=== PATIENT | male | born 1960 | race Caucasian/White ===

== ENCOUNTER → 2017-03-07 | Outpatient (CLI) | payer OTHER ==
--- NOTE | 2017-03-07 15:48 | US ---
EXAMINATION TYPE: Ultrasound MSK right shoulder DATE OF EXAM: 03/07/2017 COMPARISON: NONE CLINICAL HISTORY: 56-year-old male M75.21 BICIPITAL TENDINITIS RT SHOULDER. Right shoulder pain for m onths, limited range of motion. Technique: Multiple sonographic images of the right shoulder are obtained. FINDINGS: The long head biceps tendon appears intact and appropriately situated along the bicipital groove. There is mild tenosynovial fluid along the extracapsular portion. Subscapularis tendon is intact. AC joint appears intact. Preserved muscle bulk of the supraspinatus and infraspinatus muscles. Both supraspinatus and infraspinatus tendons are intact without any high-grade partial or full-thickn ess tear. There is mild bursal thickening/fluid in the subacromial/subdeltoid bursa. There is no effusion on the posterior recess of the glenohumeral joint. Posterior labrum appears rela tively normal for patient's age. The spinoglenoid groove is clear. IMPRESSION: 1. Small amount of fluid along the bicipital groove could represent mild long head biceps tenosynovit is. No discrete tendon tear identified. 2. No evidence for rotator cuff tear or muscle atrophy. 3. Some fluid/thickening in the subacromial/subdeltoid bursa. This could represent a mild bursitis. G iven the patient's limited range of motion, correlate to exclude adhesive capsulitis.
== END | disposition home or self-care (01) ==
LOC: RADUSWWP 13:26
PROVIDERS: ATTEND Family Medicine
DX: M75.21 Bicipital tendinitis, right shoulder (principal)

== ENCOUNTER 2019-02-16 12:52 | Day surgery (SDC) | payer BC ==
[~2019-02-16 12:52] MED LIST: LACTATED RINGERS 1,000 ML IV SCH; LIDOCAINE 1% 20 ML VIAL (10MG/ML) FOR IV START INTRADERMA PRN
[2019-02-16 13:17] VITALS: BMI 21.7
[2019-02-16 13:26] VITALS: RESP 16; TEMP 97.3
[2019-02-16] MEDS ORDERED: fentaNYL (PF) 50 MCG/ML 2 ML AMP ONE (13:45)
[2019-02-16] MEDS ORDERED: PROPOFOL 10 MG/ML 20 ML VIAL IV ONE (13:45)
[2019-02-16] MEDS ORDERED: MIDAZOLAM 2 MG/2 ML VIAL ONE (13:45)
--- NOTE | 2019-02-16 14:48 | P.PCN ---
Date of Procedure: 02/16/19 Description of Procedure: BRIEF HISTORY: Patient is a 58-year-old female presenting for outpatient colonoscopy malignant neoplasm of the colon. The patient reports no change in bowel habits, blood per rectum, abdominal pain. Remote history of colonoscopy which she believes was normal. PROCEDURE PERFORMED: Colonoscopy with polypectomy. PREOPERATIVE DIAGNOSIS: Screening for malignant neoplasm of the colon. ESTIMATED BLOOD LOSS: Minimal. IV sedation per Anesthesia. PROCEDURE: After informed consent was obtained, the patient, was brought into the endoscopy unit. IV sedation was administered by Anesthesia under continuous monitoring. Digital rectal examination was normal. Initially the Olympus CF-190 flexible video colonoscope was then inserted in the rectum, gradually advanced into the cecum without any difficulty. Careful examination was performed as the scope was gradually being withdrawn. Ileocecal valve and the appendiceal orifice were visualized and appeared normal. Prep was excellent. Mucosa of the cecum, ascending colon, transverse colon, descending colon, sigmoid colon, and rectum appeared normal. 1 diminutive 2 mm ascending colon polyp removed with cold forcep polypectomy. 2 polyps removed from the transverse colon one measuring 4 mm with cold snare polypectomy and one measuring 2 mm with cold forcep polypectomy. One large pedunculated 12 mm splenic flexure polyp removed with hot snare polypectomy. 2 sessile descending colon polyps measuring 6 and 7 mm removed with cold snare polypectomy. 4 diminutive sigmoid colon polyps measuring 1-2 mm removed with cold forcep polypectomy.Retroflexion was performed in the rectum and no lesions were seen. The patient tolerated the procedure well. IMPRESSION: 10 colon polyps measuring from 1 to 12 millimeters removed from the colon (please see body report for full details on location and removal). RECOMMENDATIONS: Findings of this examination were discussed with isreal and his family. Okay to resume diet. Okay to resume medications. Await pathology from polypectomy. Repeat colonoscopy in 1 year for high risk colon polyps.
[2019-02-16 15:47] VITALS: BP 141/83; PULSE 79
== END 2019-02-16 16:00 | disposition home or self-care (01) ==
LOC: ORWHC2ENDO 12:52
PROVIDERS: ATTEND Internal Medicine
DX: Z12.11 Encounter for screening for malignant neoplasm of colon (principal); D12.4 Benign neoplasm of descending colon; D12.5 Benign neoplasm of sigmoid colon; D12.3 Benign neoplasm of transverse colon; K63.5 Polyp of colon; I10 Essential (primary) hypertension; K21.9 Gastro-esophageal reflux disease without esophagitis; Z79.899 Other long term (current) drug therapy
CPT/HCPCS: 88305; 45380; 45385; J2250; J3010; J2704

== ENCOUNTER 2020-05-23 07:03 | Day surgery (SDC) | payer BC ==
[2020-05-19 08:58] VITALS: BMI 23.2
[~2020-05-23 07:03] MED LIST changes: -LIDOCAINE 1% 20 ML VIAL (10MG/ML) FOR IV START INTRADERMA PRN
[2020-05-23 07:30] VITALS: TEMP 97.7
[2020-05-23] MEDS ORDERED: LIDOCAINE 1% (10MG/ML) FOR IV START INTRADERMA ONE (07:30)
[2020-05-23] MEDS ORDERED: MIDAZOLAM 2 MG/2 ML VIAL ONE (08:18)
[2020-05-23] MEDS ORDERED: fentaNYL (PF) 50 MCG/ML 2 ML AMP ONE (08:18)
[2020-05-23] MEDS ORDERED: PROPOFOL 10 MG/ML 20 ML VIAL IV ONE (08:18)
--- NOTE | 2020-05-23 08:48 | P.PCN ---
Date of Procedure: 05/23/20 Description of Procedure: BRIEF HISTORY: Patient is a 58-year-old male presenting for outpatient colonoscopy for evaluation history of colon polyps. Patient had colonoscopy in 01/2019 with 10 polyps removed at that time. He denies any change in bowel habits, blood per rectum or abdominal pain. PROCEDURE PERFORMED: Colonoscopy with polypectomy . PREOPERATIVE DIAGNOSIS: Personal history of colon polyps, last colonoscopy 01/2019 with 10 polyps removed at that time. ESTIMATED BLOOD LOSS: Minimal. IV sedation per Anesthesia. PROCEDURE: After informed consent was obtained, the patient, was brought into the endoscopy unit. IV sedation was administered by Anesthesia under continuous monitoring. Digital rectal examination was normal. Initially the Olympus CF-190 flexible video colonoscope was then inserted in the rectum, gradually advanced into the cecum without any difficulty. Careful examination was performed as the scope was gradually being withdrawn. Ileocecal valve and the appendiceal orifice were visualized and appeared normal. Prep was excellent. Mucosa of the cecum, a scending colon, transverse colon, descending colon, sigmoid colon, and rectum appeared normal. 2 diminutive transverse colon polyps measuring 1-2 mm in size removed with cold forcep polypectomy. Cold snare polypectomy of 4 ascending colon polyps measuring 2 mm to 4 mm in size and one sigmoid colon polyp measuring 3 mm in size. Retroflexion was performed in the rectum and no lesions were seen, Low-grade internal hemorrhoids. The patient tolerated the procedure well. IMPRESSION: 5 small polyps removed with cold snare polypectomy 4 from the descending colon and one from the sigmoid colon. 2 diminutive transverse colon polyps removed with cold forcep polypectomy. RECOMMENDATIONS: Findings of this examination were discussed with the patient. Okay to resume diet. Okay to resume medications. Await pathology from polypectomies. Recommend repeat colonoscopy in 3 years for history of colon polyps .
[2020-05-23 09:13] VITALS: BP 132/86; PULSE 87; RESP 18
== END 2020-05-23 09:52 | disposition home or self-care (01) ==
LOC: ORWHC2ENDO 07:03
PROVIDERS: ATTEND Internal Medicine
DX: Z09 Encounter for follow-up examination after completed treatment for conditions other than malignant neoplasm (principal); D12.3 Benign neoplasm of transverse colon; D12.4 Benign neoplasm of descending colon; D12.5 Benign neoplasm of sigmoid colon; Z86.010 Personal history of colon polyps; K64.8 Other hemorrhoids; I10 Essential (primary) hypertension; Z79.899 Other long term (current) drug therapy; Z98.890 Other specified postprocedural states
CPT/HCPCS: 88305; 45380; 45385; J2250; J3010; J2704

== ENCOUNTER 2024-07-30 09:45 | Emergency (ER) | payer BC, OTHER ==
--- NOTE | 2024-07-30 10:32 | ED ---
General Adult HPI - General Chief complaint: Recheck/Abnormal Lab/Rx Stated complaint: IHS-right side pain Time Seen by Provider: 07/30/24 10:05 Source: patient, RN notes reviewed Mode of arrival: ambulatory Limitations: no limitations - History of Present Illness Initial comments: 64-year-old male presents to the emergency department for evaluation of right sided chest wall pain. Patient states that he took a fall on Saturday following a syncopal episode. He went to [facility] to be evaluated. He had laboratory studies, EKG, chest x-ray performed which he states were unremarkable. He states that since then he has had pain in his chest wall. It is worse with breathing and movement. He denies any shortness of breath. Denies any bruising over the skin. He has been utilizing Robaxin, Tylenol, and lidocaine patches with minimal relief. - Related Data Home Medications Medication Instructions Recorded Confirmed Multivitamins, Thera [Multivitamin 1 tab PO DAILY 02/13/19 05/23/20 (formulary)] Ascorbic Acid [Vitamin C] 500 mg PO DAILY 02/16/19 05/23/20 Propranolol [Inderal] 80 mg PO DAILY 02/16/19 05/23/20 Losartan Potassium [Cozaar] 100 mg PO DAILY 05/19/20 05/23/20 flaxseed oiL [Flaxseed Oil] 1,000 mg PO DAILY 05/19/20 05/23/20 hydroCHLOROthiazide 12.5 mg PO DAILY 05/19/20 05/23/20 Previous Rx's Medication Instructions Recorded HYDROcodone/APAP 5-325MG [Jackson 1 tab PO Q6HR PRN 3 Days #12 tab 07/30/24 5-325] Allergies Allergy/AdvReac Type Severity Reaction Status Date / Time No Known Allergies Allergy Verified 07/30/24 09:49 Review of Systems ROS Statement: Those systems with pertinent positive or pertinent negative responses have been documented in the HPI. ROS Other: All systems not noted in ROS Statement are negative. Past Medical History Past Medical History: Diabetes Mellitus, Hypertension Additional Past Medical History / Comment(s): back pain, hx. colon polyps, hand tremors-not sure of cause, has had for years, "pre-diabetic", watches diet History of Any Multi-Drug Resistant Organisms: None Reported Past Surgical History: No Surgical Hx Reported Additional Past Surgical History / Comment(s): colonoscopy, pain procedure Past Anesthesia/Blood Transfusion Reactions: No Reported Reaction Past Psychological History: No Psychological Hx Reported Smoking Status: Never smoker General Exam Limitations: no limitations General appearance: alert, in no apparent distress Head exam: Present: atraumatic, normocephalic, normal inspection Eye exam: Present: normal appearance, PERRL, EOMI. Absent: scleral icterus, conjunctival injection, periorbital swelling Respiratory exam: Present: normal lung sounds bilaterally, chest wall tenderness (Right anteriolateral chest wall tenderness to palpation). Absent: respiratory distress, wheezes, rales, rhonchi, stridor Cardiovascular Exam: Present: regular rate, normal rhythm, normal heart sounds. Absent: systolic murmur, diastolic murmur, rubs, gallop, clicks GI/Abdominal exam: Present: soft, normal bowel sounds. Absent: distended, tenderness, guarding, rebound, rigid Extremities exam: Present: normal inspection, full ROM, normal capillary refill. Absent: tenderness, pedal edema, joint swelling, calf tenderness Back exam: Present: normal inspection Neurological exam: Present: alert, oriented X3 Psychiatric exam: Present: normal affect, normal mood Skin exam: Present: warm, dry, intact, normal color. Absent: rash Course Vital Signs 07/30/24 07/30/24 09:45 10:12 Temperature 97.6 F Pulse Rate 92 Respiratory 18 22 Rate Blood Pressure 148/95 O2 Sat by Pulse 96 Oximetry Medical Decision Making - Medical Decision Making Was pt. sent in by a medical professional or institution (, PA, PRODUCTION SUPPORT ENGINEER, urgent care, hospital, or jail...) When possible be specific @ -No Did you speak to anyone other than the patient for history (EMS, parent, family, police, friend...)? What history was obtained from this source @ -No Did you review nursing and triage notes (agree or disagree)? Why? @ -I reviewed and agree with nursing and triage notes Were old charts reviewed (outside hosp., previous admission, EMS record, old EKG, old radiological studies, urgent care reports/EKG's, jail records)? Report findings @ -No old charts were reviewed Differential Diagnosis (chest pain, altered mental status, abdominal pain women, abdominal pain men, vaginal bleeding, weakness, fever, dyspnea, syncope, headache, dizziness, GI bleed, back pain, seizure, CVA, palpatations, mental health, musculoskeletal)? @ -Differential Musculoskeletal Muscular strain, contusion, ligament sprain, fracture, arthritis, septic arthritis, bursitis, cellulitis, muscle spasm, nerve compression, DVT, arterial occlusion, herpes zoster, electrolyte abnormality, tumor.... This is not meant to be in all inclusive list EKG interpreted by me (3pts min.). @ -None X-rays interpreted by me (1pt min.). @ -X-rays of the right sided ribs and PA chest reveal potential projectional artifact versus nondisplaced fracture of the right anterior lateral seventh rib CT interpreted by me (1pt min.). @ -None done U/S interpreted by me (1pt. min.). @ -None done What testing was considered but not performed or refused? (CT, X-rays, U/S, labs)? Why? @ -None What meds were considered but not given or refused? Why? @ -None Did you discuss the management of the patient with other professionals (professionals i.e. , PA, PRODUCTION SUPPORT ENGINEER, lab, RT, psych nurse, social work msw, flattening machine operator, teacher, toxics program officer, case repairer)? Give summary @ -No Was smoking cessation discussed for >3mins.? @ -No Was critical care preformed (if so, how long)? @ -No Were there social determinants of health that impacted care today? How? (H omelessness, low income, unemployed, alcoholism, drug addiction, transportation, low edu. Level, literacy, decrease access to med. care, fpc, rehab)? @ -No Was there de-escalation of care discussed even if they declined (Discuss DNR or withdrawal of care, Hospice)? DNR status @ -No What co-morbidities impacted this encounter? (DM, HTN, Smoking, COPD, CAD, Cancer, CVA, ARF, Chemo, Hep., AIDS, mental health diagnosis, sleep apnea, morbid obesity)? @ -None Was patient admitted / discharged? Hospital course, mention meds given and route, prescriptions, significant lab abnormalities, going to OR and other pertinent info. @ -Discharged. Patient presented to the emergency department for right anterior lateral chest wall pain. Patient took a fall on Saturday following a syncopal episode. He had been evaluated at an outside facility for this. Had laboratory studies obtained including CBC, CMP, troponin which he states was unremarkable. He also had a chest x-ray at that time and states that they did not see any rib fractures. He notes that his pain is continued to worsen prompting his presentation to our emergency department today. X-rays of the right sided ribs and PA chest were obtained which reveal potential projectional artifact versus nondisplaced fracture of the right anterior lateral seventh rib. Based on the patient's clinical presentation I do believe that this is likely a fracture. Patient was provided Toradol and Jackson in the emergency department for pain control which he states improved his pain. He was provided an incentive spirometer and instructed on its use. He will be discharged home with a prescription for Jackson x 3 days. I advised him to follow-up with his primary care provider for release back to work. He is understanding agreeable with discharge plan. Patient stable at time of discharge. Case discussed with Dr. Smith. Undiagnosed new problem with uncertain prognosis? @ -No Drug Therapy requiring intensive monitoring for toxicity (Heparin, Nitro, Insulin, Cardizem)? @ -No Were any procedures done? @ -No Diagnosis/symptom? @ -Rib fracture Acute, or Chronic, or Acute on Chronic? @ -Acute Uncomplicated (without systemic symptoms) or Complicated (systemic symptoms)? @ -Uncomplicated Side effects of treatment? @ -No Exacerbation, Progression, or Severe Exacerbation? @ -No Poses a threat to life or bodily function? How? (Chest pain, USA, NV, pneumonia, PE, COPD, DKA, ARF, appy, cholecystitis, CVA, Diverticulitis, Homicidal, Suicidal, threat to staff... and all critical care pts) @ -No Disposition Clinical Impression: Rib fracture, Rib contusion Disposition: HOME SELF-CARE Condition: Stable Instructions (If sedation given, give patient instructions): Rib Fracture (ED) Additional Instructions: Please follow-up with your primary care provider for release back to work. Utilize ibuprofen in addition to the Jackson for pain control. Also utilize the incentive spirometer. Return to the emergency department for new or worsening symptoms. Prescriptions: HYDROcodone/APAP 5-325MG [Jackson 5-325] 1 tab PO Q6HR PRN 3 Days #12 tab PRN Reason: Pain Is patient prescribed a controlled substance at d/c from ED?: Yes When asked, does pt state using other controlled substances?: No If prescribed controlled substance>3 days was MAPS reviewed?: Prescribed <3 Days Referrals: Holly Mitchell DO [Primary Care Provider] - 1-2 days
[2024-07-30] MEDS: KETOROLAC 15 MG/ML 1 ML VIAL IM STA (10:33)
[2024-07-30] MEDS: HYDROcodone/APAP 5-325MG 1 EACH TAB PO STA (10:34)
--- NOTE | 2024-07-30 11:17 | XR ---
EXAMINATION TYPE: XR ribs RT w pa chest xray, 5 views DATE OF EXAM: 07/30/2024 11:11 AM COMPARISON: None CLINICAL INDICATION: Male, 64 years old with history of pain; PHH, pain FINDINGS: Heart limits of normal in size. Interstitial prominence. Left base underpenetrated and not well asses sed. Some cortical irregularity along the right lateral sixth rib due to old injury. There is a lucen cy along the anterolateral right seventh rib on the oblique view, possible nondisplaced fracture. No appreciable pneumothorax. IMPRESSION: 1. Chest: Interstitial prominence may reflect underlying bronchitis or asthma. Left base underpenetra zuleyma and not well assessed. 2. Right ribs: Either projectional artifact versus a nondisplaced fracture of the right anterolateral seventh rib. Correlate for point tenderness. [facility], Workstation: [id number], 07/30/2024 11:15 AM
[2024-07-30 11:53] VITALS: BP 148/97; PULSE 72; RESP 20; TEMP 97.8
== END 2024-07-30 11:55 | disposition home or self-care (01) ==
LOC: EC 09:45
DX: S20.219A Contusion of unspecified front wall of thorax, initial encounter (principal); S22.31XA Fracture of one rib, right side, initial encounter for closed fracture; W19.XXXA Unspecified fall, initial encounter
CPT/HCPCS: 71101; 99284; 96372; J1885

== ENCOUNTER → 2024-08-27 | Outpatient (CLI) | payer BC ==
--- NOTE | 2024-08-27 15:24 | US ---
EXAMINATION TYPE: US carotid duplex BILAT DATE OF EXAM: 08/27/2024 COMPARISON: NONE CLINICAL INDICATION: Male, 64 years old with history of R55 SYNCOPE, R42 DIZZINESS; fall at work x 3 weeks ago, pt still feeling dizzy after couple days returning back to work, pt is feeling back to nor mal today Additional History: R42* Dizziness TECHNIQUE: Grayscale, color Doppler and spectral Doppler evaluation of the bilateral carotid systems and vertebral arteries. Indirect Doppler criteria was utilized. FINDINGS: EXAM MEASUREMENTS: RIGHT: Peak Systolic Velocity (PSV) cm/sec ----- Right CCA: 98.7 ----- Right ICA: 125 ----- Right ECA: 125 ICA/CCA ratio: 1.3 RIGHT: End Diastole cm/sec ----- Right CCA: 22.6 ----- Right ICA: 45.5 ----- Right ECA: 13.9 LEFT: Peak Systolic Velocity (PSV) cm/sec ----- Left CCA: 112 ----- Left ICA: 125 ----- Left ECA: 118 ICA/CCA ratio: 1.1 LEFT: End Diastole cm/sec ----- Left CCA: 26.0 ----- Left ICA: 45.5 ----- Left ECA: 13.0 VERTEBRALS (direction of flow): Right Vertebral: Antegrade Left Vertebral: Antegrade Rhythm: Normal MANAGER IT SECURITY NOTES: No elevated velocities, plaque or significant stenosis seen bilaterally Color Doppler imaging shows patency with blood flow throughout the carotid artery. Spectral waveforms are within normal limits. IMPRESSION: No evidence for hemodynamically significant stenosis Criteria for Assigning % of Stenosis / Diameter reduction (Estimation based on the indirect measurements of the internal carotid artery velocities (ICA PSV). 1. Normal (no stenosis)=ICA PSV < 180 cm/s: ratio < 2.0: ICA EDV<40 cm/s. 2. Less than 50% stenosis=ICA PSV < 180 cm/s: ratio < 2.0: ICA EDV<40 cm/s. 3. 50 to 69% stenosis=ICA PSV of 180 to 230 cm/s: ration 2.0 ? 4.0: ICA EDV 40-100 cm/s. PSV 125-180 cm/sec and ICA/CCA PSV Ratio ? 2.0 is also consistent with 50-69% stenosis 4. Greater than 70% stenosis to near occlusion= ICA PSV > 230 cm/s: ratio > 4.0: ICA EDV > 100 cm/s. 5. Near occlusion= ICA PSV velocities may be low or undetectable: variable ratio and ICA EDV. 6. Total occlusion=unable to detect flow. [facility], , 08/27/2024 3:22 PM
--- NOTE | 2024-08-28 15:48 | CA ---
Transthoracic Echo Report Name: Scotty Montenegro Age: 64 Gender: M : 1960 Exam Date: 08/27/2024 15:02 Exam Location: [place] Ht (in): 73 Wt (lb): 185 Ordering Physician: Holly Mitchell DO Attending/Referring Phys: Sonia Newell [facility] [employer] Advanced Operator Maintainer Martha Valladares RDCS Procedure CPT: Indications: R42 Cardiac Hx: Technical Quality: Fair Contrast 1: Total Dose (mL): Contrast 2: Total Dose (mL): MEASUREMENTS (Male / Female) Normal Values 2D ECHO LV Diastolic Diameter PLAX 5.5 cm 4.2 - 5.9 / 3.9 - 5.3 cm LV Systolic Diameter PLAX 4.0 cm IVS Diastolic Thickness 1.3 cm 0.6 - 1.0 / 0.6 - 0.9 cm LVPW Diastolic Thickness 1.2 cm 0.6 - 1.0 / 0.6 - 0.9 cm LV Relative Wall Thickness 0.4 RV Internal Dim ED PLAX 3.7 cm LA Systolic Diameter LX 3.7 cm 3.0 - 4.0 / 2.7 - 3.8 cm LV Diastolic Volume MOD 4C 106.1 cm??? LV Systolic Volume MOD 4C 52.0 cm??? LV Ejection Fraction MOD 4C 50.9 % LV Cardiac Index MOD 4C 1815.5 cm???/min???m??? LV Diastolic Length 4C 8.1 cm LV Systolic Length 4C 6.7 cm LV Diastolic Volume MOD 2C 103.6 cm??? LV Systolic Volume MOD 2C 45.0 cm??? LV Ejection Fraction MOD 2C 56.5 % LV Cardiac Index MOD 2C 1967.3 cm???/min???m??? LV Diastolic Length 2C 8.3 cm LV Systolic Length 2C 6.9 cm LA Volume 47.5 cm??? 18 - 58 / 22 - 52 cm??? LA Volume Index 22.8 cm???/m??? 16 - 28 cm???/m??? M-MODE Aortic Root Diameter MM 3.2 cm AV Cusp Separation MM 2.1 cm DOPPLER AV Peak Velocity 112.0 cm/s AV Peak Gradient 5.0 mmHg MV Area PHT 3.7 cm??? Mitral E Point Velocity 69.1 cm/s Mitral A Point Velocity 83.1 cm/s Mitral E to A Ratio 0.8 MV Deceleration Time 204.7 ms TR Peak Velocity 236.2 cm/s TR Peak Gradient 22.3 mmHg Right Ventricular Systolic Press 26.9 mmHg FINDINGS Left Ventricle Left ventricular ejection fraction is estimated at 50-55%. Left ventricular cavity size normal. Mildly increased septal wall thickness. No obvious regional wall motion abnormalities. Right Ventricle Mild right ventricular dilatation. Right ventricular systolic pressure within normal limits. Right Atrium Normal right atrial size. No right atrial thrombus or mass seen. Left Atrium Normal left atrial size. No left atrial thrombus or mass present. Mitral Valve Mitral valve thickened. No mitral stenosis, regurgitation or prolapse. Aortic Valve Trileaflet aortic valve. No aortic valve stenosis or regurgitation. Tricuspid Valve Structurally normal tricuspid valve. Trace to mild tricuspid regurgitation. Pulmonic Valve Structurally normal pulmonic valve. Trace pulmonic regurgitation. Pericardium No pericardial effusion. Aorta Normal size aortic root and proximal ascending aorta. CONCLUSIONS Left ventricular ejection fraction 50 to 55% Mildly increased left ventricular wall thickness Trace to mild tricuspid regurgitation No pericardial effusion Previewed by: Dr. Javon Callejas DO (Electronically Signed) Final Date: 28 Aug 2024 15:47
== END | disposition home or self-care (01) ==
LOC: RADUSWWP 14:05
PROVIDERS: ATTEND Family Medicine
DX: R42 Dizziness and giddiness (principal); R55 Syncope and collapse
CPT/HCPCS: 93306; 93880

== ENCOUNTER 2024-09-06 13:35 | Emergency (ER) | payer BC ==
[2024-09-06 13:39] VITALS: RESP 18; TEMP 98.1
--- NOTE | 2024-09-06 13:57 | ED ---
General Adult HPI - General Chief complaint: Arrhythmia/Palpitations Stated complaint: increased heart rate Time Seen by Provider: 09/06/24 13:42 Source: patient, RN notes reviewed Mode of arrival: ambulatory Limitations: no limitations - History of Present Illness Initial comments: Patient is a 64-year-old male present to the emergency department with concerns for palpitations. Onset of symptoms was yesterday. Heart rate at home was up to 140. Symptoms seem to improve and heart rate went under 100 at bedtime. Symptoms occurred again this morning with a heart rate of 120. Currently patient is symptom-free. Patient does have chronic tremor and states this is a little bit increased. Patient admits to feeling a little bit anxious as well. No chest pain. No dyspnea. - Related Data Home Medications Medication Instructions Recorded Confirmed Multivitamins, Thera [Multivitamin 1 tab PO DAILY 02/13/19 05/23/20 (formulary)] Ascorbic Acid [Vitamin C] 500 mg PO DAILY 02/16/19 05/23/20 Propranolol [Inderal] 80 mg PO DAILY 02/16/19 05/23/20 Losartan Potassium [Cozaar] 100 mg PO DAILY 05/19/20 05/23/20 flaxseed oiL [Flaxseed Oil] 1,000 mg PO DAILY 05/19/20 05/23/20 hydroCHLOROthiazide 12.5 mg PO DAILY 05/19/20 05/23/20 Previous Rx's Medication Instructions Recorded HYDROcodone/APAP 5-325MG [Supply 1 tab PO Q6HR PRN 3 Days #12 tab 07/30/24 5-325] Allergies Allergy/AdvReac Type Severity Reaction Status Date / Time No Known Allergies Allergy Verified 09/06/24 13:39 Review of Systems ROS Statement: Those systems with pertinent positive or pertinent negative responses have been documented in the HPI. ROS Other: All systems not noted in ROS Statement are negative. Constitutional: Denies: fever Eyes: Denies: eye pain ENT: Denies: ear pain Respiratory: Denies: cough, dyspnea Cardiovascular: Reports: as per HPI, palpitations. Denies: chest pain Endocrine: Denies: fatigue Gastrointestinal: Denies: abdominal pain Past Medical History Past Medical History: Diabetes Mellitus, Hypertension Additional Past Medical History / Comment(s): back pain, hx. colon polyps, hand tremors-not sure of cause, has had for years, "pre-diabetic", watches diet History of Any Multi-Drug Resistant Organisms: None Reported Past Surgical History: No Surgical Hx Reported Additional Past Surgical History / Comment(s): colonoscopy, pain procedure Past Anesthesia/Blood Transfusion Reactions: No Reported Reaction Past Psychological History: No Psychological Hx Reported Smoking Status: Never smoker General Exam Limitations: no limitations General appearance: alert, in no apparent distress Head exam: Present: normocephalic Eye exam: Present: normal appearance Neck exam: Present: normal inspection Respiratory exam: Present: normal lung sounds bilaterally Cardiovascular Exam: Present: normal rhythm, tachycardia GI/Abdominal exam: Present: soft. Absent: tenderness Extremities exam: Present: normal inspection. Absent: pedal edema, calf tenderness Neurological exam: Present: alert Psychiatric exam: Present: normal affect, normal mood Skin exam: Present: normal color Course Vital Signs 09/06/24 09/06/24 13:36 15:43 Temperature 98.1 F Pulse Rate 120 H 88 Respiratory 18 18 Rate Blood Pressure 153/97 149/100 O2 Sat by Pulse 97 98 Oximetry EKG Findings - EKG Results: EKG: interpreted by JACLYN, sinus rhythm, normal axis, normal QRS, normal ST/T EKG shows: tachycardia Medical Decision Making - Medical Decision Making Was pt. sent in by a medical professional or institution (, PA, REAL ESTATE VALUER, urgent care, hospital, or skilled nursing...) When possible be specific @ -No Did you speak to anyone other than the patient for history (EMS, parent, family, police, friend...)? What history was obtained from this source @ -No Did you review nursing and triage notes (agree or disagree)? Why? @ -I reviewed and agree with nursing and triage notes Were old charts reviewed (outside hosp., previous admission, EMS record, old EKG, old radiological studies, urgent care reports/EKG's, skilled nursing records)? Report findings @ -No old charts were reviewed Differential Diagnosis (chest pain, altered mental status, abdominal pain women, abdominal pain men, vaginal bleeding, weakness, fever, dyspnea, syncope, headache, dizziness, GI bleed, back pain, seizure, CVA, palpatations, mental health, musculoskeletal)? @ -Differential Palpitations Ventricular arrhythmias, atrial arrhythmias, myocardial infarction, anemia, thyrotoxicosis, electrolyte imbalance, hypokalemia, pulmonary embolism, pulmonary disease, drugs, alcohol, anxiety, stress.... This is not meant to be an all-inclusive list. EKG interpreted by me (3pts min.). @ -As above X-rays interpreted by me (1pt min.). @ -Chest x-ray shows no acute process CT interpreted by me (1pt min.). @ -CT scan of the chest negative for pulmonary embolism U/S interpreted by me (1pt. min.). @ -None done What testing was considered but not performed or refused? (CT, X-rays, U/S, labs)? Why? @ -None What meds were considered but not given or refused? Why? @ -None Did you discuss the management of the patient with other professionals (professionals i.e. , PA, REAL ESTATE VALUER, lab, RT, psych nurse, socially responsible investment adviser, plastic sheeting cutter, teacher, chief informatics officer, disability case manager)? Give summary @ -No Was smoking cessation discussed for >3mins.? @ -No Was critical care preformed (if so, how long)? @ -No Were there social determinants of health that impacted care today? How? (Homelessness, low income, unemployed, alcoholism, drug addiction, transportation, low edu. Level, literacy, decrease access to med. care, senior living, rehab)? @ -No Was there de-escalation of care discussed even if they declined (Discuss DNR or withdrawal of care, Hospice)? DNR status @ -No What co-morbidities impacted this encounter? (DM, HTN, Smoking, COPD, CAD, Cancer, CVA, ARF, Chemo, Hep., AIDS, mental health diagnosis, sleep apnea, m orbid obesity)? @ -Patient did have a syncopal episode a month ago. Patient has follow-up with his doctor. Patient has had echo. Was patient admitted / discharged? Hospital course, mention meds given and route, prescriptions, significant lab abnormalities, going to OR and other pertinent info. @ -Patient presents with concerns for tachycardia. Heart rate has normalized since in the emergency department and patient has been consistently in the upper 80s. Patient has no other symptoms. Evaluation unremarkable. Patient will be discharged with follow-up with cardiology. Recommended considering Holter monitor Drug Therapy requiring intensive monitoring for toxicity (Heparin, Nitro, Insul in, Cardizem)? @ -No Were any procedures done? @ -No Diagnosis/symptom? @ -Tachycardia Acute, or Chronic, or Acute on Chronic? @ -Acute Uncomplicated (without systemic symptoms) or Complicated (systemic symptoms)? @ -Default Side effects of treatment? @ -No Exacerbation, Progression, or Severe Exacerbation? @ -No Poses a threat to life or bodily function? How? (Chest pain, [place], [place], pneumonia, PE, COPD, DKA, ARF, appy, cholecystitis, CVA, Diverticulitis, Homicidal, Suicidal, threat to staff... and all critical care pts) @ -No - Lab Data Result diagrams: 09/06/24 14:01 09/06/24 14:01 Lab Results 09/06/24 09/06/24 09/06/24 Range/Units 14: 14: 14:01 WBC 5.24 (4.50-10.00) 10*3/uL RBC 4.56 (4.40-5.60) 10*6/uL Hgb 14.5 (13.0-17.0) g/dL Hct 42.3 (39.6-50.0) % MCV 92.8 (80.0-97.0) fL MCH 31.8 (27.0-32.0) pg MCHC 34.3 (32.0-37.0) g/dL Plt Count 148 (140-440) 10*3/uL MPV 9.7 (9.5-12.2) fL Immature Gran % (Auto) 0.2 % Neutrophils % 69.6 % Lymphocytes % 18.9 % Monocytes % 10.7 % Eosinophils % 0.2 % Basophils % 0.4 % Immature Gran # 0.01 (0.00-0.04) 10*3/uL Neutrophils # 3.65 (1.80-7.70) 10*3/uL Lymphocytes # 0.99 (0.90-5.00) 10*3/uL Monocytes # 0.56 (0.20-1.00) 10*3/uL Eosinophils # 0.01 L (0.04-0.35) 10*3/uL Basophils # 0.02 (0.00-0.10) 10*3/uL PT 11.7 (10.0-12.5) sec INR 1.1 (<1.2) APTT 23.1 (22.0-30.0) sec D-Dimer 1.26 H (<0.60) mg/L FEU Sodium 138 (137-145) mmol/L Potassium 4.0 (3.5-5.1) mmol/L Chloride 102 (98-107) mmol/L Carbon Dioxide 25 (22-30) mmol/L Anion Gap 11 mmol/L BUN 11 (9-20) mg/dL Creatinine 0.71 (0.66-1.25) mg/dL Est GFR (CKD-EPI)AfAm >90 (>60 ml/min/1.73 sqM) Est GFR (CKD-EPI)NonAf >90 (>60 ml/min/1.73 sqM) Glucose 156 H (74-99) mg/dL Calcium 9.7 (8.4-10.2) mg/dL Magnesium 1.9 (1.6-2.3) mg/dL Total Bilirubin 0.7 (0.2-1.3) mg/dL AST 28 (17-59) U/L ALT 29 (4-49) U/L Alkaline Phosphatase 49 (38-126) U/L Troponin I (0.000-0.034) ng/mL Total Protein 7.3 (6.3-8.2) g/dL Albumin 4.3 (3.5-5.0) g/dL TSH 1.080 (0.465-4.680) mIU/L Free T4 1.39 (0.78-2.19) ng/dL 09/06/24 Range/Units 14:01 WBC (4.50-10.00) 10*3/uL RBC (4.40-5.60) 10*6/uL Hgb (13.0-17.0) g/dL Hct (39.6-50.0) % MCV (80.0-97.0) fL MCH (27.0-32.0) pg MCHC (32.0-37.0) g/dL Plt Count (140-440) 10*3/uL MPV (9.5-12.2) fL Immature Gran % (Auto) % Neutrophils % % Lymphocytes % % Monocytes % % Eosinophils % % Basophils % % Immature Gran # (0.00-0.04) 10*3/uL Neutrophils # (1.80-7.70) 10*3/uL Lymphocytes # (0.90-5.00) 10*3/uL Monocytes # (0.20-1.00) 10*3/uL Eosinophils # (0.04-0.35) 10*3/uL Basophils # (0.00-0.10) 10*3/uL PT (10.0-12.5) sec INR (<1.2) APTT (22.0-30.0) sec D-Dimer (<0.60) mg/L FEU Sodium (137-145) mmol/L Potassium (3.5-5.1) mmol/L Chloride (98-107) mmol/L Carbon Dioxide (22-30) mmol/L Anion Gap mmol/L BUN (9-20) mg/dL Creatinine (0.66-1.25) mg/dL Est GFR (CKD-EPI)AfAm (>60 ml/min/1.73 sqM) Est GFR (CKD-EPI)NonAf (>60 ml/min/1.73 sqM) Glucose (74-99) mg/dL Calcium (8.4-10.2) mg/dL Magnesium (1.6-2.3) mg/dL Total Bilirubin (0.2-1.3) mg/dL AST (17-59) U/L ALT (4-49) U/L Alkaline Phosphatase (38-126) U/L Troponin I <0.012 (0.000-0.034) ng/mL Total Protein (6.3-8.2) g/dL Albumin (3.5-5.0) g/dL TSH (0.465-4.680) mIU/L Free T4 (0.78-2.19) ng/dL Disposition Clinical Impression: Tachycardia Disposition: HOME SELF-CARE Condition: Stable Instructions (If sedation given, give patient instructions): Heart Palpitations (ED) Additional Instructions: Please do follow-up with your primary care physician as well as cardiology in the next couple of days for recheck. Return for increased heart rate, chest pain, difficulty breathing, passing out, worsening or changing symptoms or other concerns. Is patient prescribed a controlled substance at d/c from ED?: No Referrals: Holly Mitchell DO [Primary Care Provider] - 1-2 days Silvestre Amato MD [Medical Doctor] - 1-2 days Time of Disposition: 15:52
[2024-09-06 14:08] LABS: Basophils # (A) 0.02 10*3/uL (0.00-0.10); Basophils % (A) 0.4 %; Eosinophils # (A) 0.01 10*3/uL (0.04-0.35); Eosinophils % (A) 0.2 %; HCT 42.3 % (39.6-50.0); HGB 14.5 g/dL (13.0-17.0); Lymphocytes # (A) 0.99 10*3/uL (0.90-5.00); Lymphocytes % (A) 18.9 %; MCH 31.8 pg (27.0-32.0); MCHC 34.3 g/dL (32.0-37.0); MCV 92.8 fL (80.0-97.0); Mean Platelet Volume 9.7 fL (9.5-12.2); Monocytes # (A) 0.56 10*3/uL (0.20-1.00); Monocytes % (A) 10.7 %; Neutrophils # (A) 3.65 10*3/uL (1.80-7.70); Neutrophils % (A) 69.6 %; Platelet Count 148 10*3/uL (140-440); RBC 4.56 10*6/uL (4.40-5.60); RDW 13.5 % (11.5-14.5); WBC 5.24 10*3/uL (4.50-10.00)
[2024-09-06 14:20] LABS: ALT 29 U/L (4-49); AST 28 U/L (17-59); African American GFR (CKD) >90 (>60 ml/min/1.73 sqM); Albumin 4.3 g/dL (3.5-5.0); Alkaline Phosphatase 49 U/L (38-126); Anion Gap 11 mmol/L; Blood Urea Nitrogen 11 mg/dL (9-20); Calcium 9.7 mg/dL (8.4-10.2); Carbon Dioxide 25 mmol/L (22-30); Chloride 102 mmol/L (98-107); Glucose 156 mg/dL (74-99); Magnesium 1.9 mg/dL (1.6-2.3); Non-African American GFR(CKD) >90 (>60 ml/min/1.73 sqM); Sodium 138 mmol/L (137-145); Total Bilirubin 0.7 mg/dL (0.2-1.3); Total Protein 7.3 g/dL (6.3-8.2)
--- NOTE | 2024-09-06 14:20 | XR ---
EXAMINATION TYPE: XR chest 2V DATE OF EXAM: 09/06/2024 2:07 PM COMPARISON: Chest radiographs from 07/30/2024. CLINICAL INDICATION: Male, 64 years old with history of dysrhythmia; [facility] TECHNIQUE: XR chest 2V Frontal and lateral views of the chest. FINDINGS: Lungs/Pleura: There is flattening of the diaphragm with increased lucency of the lungs. No evidence o f pneumothorax, pleural effusion or focal consolidation. Pulmonary vascularity: Unremarkable. Heart/mediastinum: Cardiomediastinal silhouette is unremarkable. Musculoskeletal: No acute osseous pathology. IMPRESSION: 1. No acute cardiopulmonary disease process. 2. COPD changes. [facility], , 09/06/2024 2:18 PM
[2024-09-06] MEDS: LORazepam 1 MG/0.5 ML VIAL IV STA (14:26)
[2024-09-06 14:29] LABS: INR 1.1 (<1.2); Partial Thromboplastin Time 23.1 sec (22.0-30.0); Prothrombin Time 11.7 sec (10.0-12.5)
[2024-09-06 14:38] LABS: T4, Free (Free Thyroxine) 1.39 ng/dL (0.78-2.19)
--- NOTE | 2024-09-06 15:35 | CT ---
EXAMINATION TYPE: CT angio chest DATE OF EXAM: 09/06/2024 2:53 PM COMPARISON: 09/06/2024 CLINICAL INDICATION: Male, 64 years old with history of tachycardia; Elevated D-dimer. Syncopal episo nicky. Tachycardia. TECHNIQUE/CONTRAST: CTA scan of the thorax is performed with IV Contrast, patient injected with 100 ml mL of Isovue 370, MIP images are created and reviewed these are created on a separate workstation.. CT DLP: 309.5 mGycm, Automated exposure control for dose reduction was used. FINDINGS: Lungs/Pleura: No evidence of focal consolidation, pleural effusion or pneumothorax. Airway: Large airways are patent. Heart: Size within normal limits. No significant coronary artery calcifications. Vasculature: There is no evidence for a filling defect within the pulmonary vasculature to suggest [place] pulmonary embolism. The pulmonary artery is of normal size. Mediastinum: No gross evidence of adenopathy. Musculoskeletal: Fracture line seen to the right anterior ribs 3-7 there is some callus formation at these fracture sites. Soft Tissues/lymph nodes: Unremarkable. Lower neck: No significant findings. Upper Abdomen: No significant findings. IMPRESSION: 1. No evidence of pulmonary embolism. 2. Subacute fractures of right ribs 3 through 7 anterior laterally without displacement. Follow up recommendations for incidental pulmonary nodules, if there are any, are per [employer] [employer] or [place] [employer]. https://radiopaedia.org/articles/ktnikgwfal-muufcev-spuibipoy-rswtrz-qssifdqdwzoznim-1?lang=us [facility], , 09/06/2024 3:32 PM
[2024-09-06 15:45] VITALS: PULSE 88
[2024-09-06 16:02] VITALS: BP 155/97
== END 2024-09-06 16:02 | disposition home or self-care (01) ==
LOC: EC 13:35
DX: R00.0 Tachycardia, unspecified (principal)
CPT/HCPCS: 36415; 93005; 85379; 84439; 84481; 80053; 83735; 84443; 84484; 85025; 85610; 85730; 71046; 71275; 99285; 96374; J2060; Q9967

== ENCOUNTER → 2024-09-08 | Outpatient (CLI) | payer BC ==
--- NOTE | 2024-09-08 10:51 | CA ---
Exercise Stress Test Report Name: Scotty Montenegro Exam Date: 09/08/2024 09:36 Exam Location: [place] Stress Ht (in): 73 Wt (lb): 185 BSA: 2.08 Ordering Phys: Holly Mitchell DO Referring Phys: Holly Mitchell DO Technologist: JOE ADAM Age: 64 Gender: M : 1960 Procedure CPT: Indications: R07.9 CHEST PAIN, UNSP R42 DIZZINESS AND GIDDINESS ICD-10 Codes: Patient History: CHEST PAIN, HTN, HYPERCHOLESTEROLEMIA, FAMILY HX OF HEART DISEASE Medications: LOSARTAN,,,,,, HYDROCHLOROTHIAZIDE,,,,,, PROPRANOLOL,,,,,, TAMSULOSIN,,,,,, PROGLITAZONE,,,,,, GLIMEPIRIDE,,,,,, ROSUVASTATIN,,,,,, DUTASTERIDE,,,,, Meds past 24 hrs: Pretest Chest Pain: STRESS TEST Macario Protocol Exercise Duration (min:sec): 04:[address] Depressions (mm): Angina Score: Milton Score: Resting HR (bpm): 105 Peak HR (bpm): 162 Resting BP (mmHg): 138 / 102 Peak BP (mmHg): 199 / 98 MPHR: 154 Target HR: 131 % MPHR: 105 METS: 5.8 Total Dose: Peak Dose: Atropine: Double Product: 58163 BP Response: Stress Termination: MAX EXERTION/TARGET HR Stress Symptoms: NO SYMPTOMS Stress Summary: ECG ANALYSIS Resting ECG: Stress ECG: CONCLUSIONS Baseline EKG revealed sinus mechanism without significant ST-T changes. Patient walked in standard Macario protocol for 4 minutes and achieved a maximal heart rate of 162 bpm which is more than 100% of predicted maximal. There was no angina there was no arrhythmia and there were no EKG changes to indicate ischemia. Limited exercise capacity negative stress test by EKG criteria. The nuclear scan results will be reported by the radiologist Dr. Jesus Rodriguez MD (Electronically Signed) Final Date: 08 Sep 2024 10:50
--- NOTE | 2024-09-08 11:03 | NM ---
EXAMINATION TYPE: NM stress cardiolite complete DATE OF EXAM: 09/08/2024 COMPARISON: NONE CLINICAL INDICATION: Male, 64 years old with history of R07.9 CHEST PAIN, UNSP R42 DIZZINESS AND GIDD INESS; chest pain, hypertension, hypercholesterolemia, family history. TECHNIQUE: After the intravenous administration of 9.12 mCi Tc 99m Sestamibi - Rest images obtained 50 minutes post injection. The patient exercised using a CHAS protocol and 1 minute prior to peak exercise was injected with 25.2 mCi Tc 99m Sestamibi - Stress images obtained 15 minutes post injecti on. FINDINGS: Targeted heart rate (131 BPM) was achieved during performance of the study (159 bpm achieved). Total exercise time 4 minutes 3 seconds. Review of stress and rest SPECT images demonstrates some attenuation artifact along the lateral wall. No corresponding defect on stress. No distinct reversibility is seen. Gated analysis shows normal w all motion with an estimated left ventricular ejection fraction of 70 %. TID is calculated at 0.70, within normal limits. IMPRESSION: Some attenuation artifact involving the lateral wall. No scintigraphic evidence for reversible ischemia [facility], Workstation: [id number], 09/08/2024 11:00 AM
== END | disposition home or self-care (01) ==
LOC: RADNMMAIN 08:12
PROVIDERS: ATTEND Family Medicine
DX: R42 Dizziness and giddiness (principal); R07.9 Chest pain, unspecified
CPT/HCPCS: 93017; 78452; A9500